=== PATIENT | female | born 1935 | race Caucasian/White ===

== ENCOUNTER → 2018-02-04 | Outpatient (CLI) | payer MEDICARE, OTHER ==
[~2018-02-04] MED LIST: REGADENOSON 0.4 MG/5 ML SYR IV ONE
== END ==
LOC: NM 10:14
PROVIDERS: ATTEND Internal Medicine Cardiovascular Disease
DX: I25.10 Atherosclerotic heart disease of native coronary artery without angina pectoris (principal); R94.31 Abnormal electrocardiogram [ECG] [EKG]
CPT/HCPCS: 78452; 93017; A9502

== ENCOUNTER → 2020-04-11 | Day surgery (SDC) | payer MEDICARE, OTHER ==
[2020-04-05 15:12] LABS: BASOPHILS % 0.5 % (0.0-1.0); EOSINOPHILS # (AUTO) 0.2 (0.0-0.4); EOSINOPHILS % 2.6 % (0.0-6.0); HEMATOCRIT 40.8 % (34.2-44.1); HEMOGLOBIN 13.1 g/dL (12.0-16.0); LYMPHOCYTES % 16.4 % (18.0-39.1); MEAN CORPUSCULAR HEMOGLOBIN 29.2 pg (28-32); MEAN CORPUSCULAR HGB CONC 32.1 g/dL (31-35); MEAN CORPUSCULAR VOLUME 91.1 fL (81-99); MONOCYTES # (AUTO) 0.7 (0.2-0.8); MONOCYTES % 12.1 % (4.4-11.3); NEUTROPHILS # (AUTO) 4.1 (2.1-6.9); NEUTROPHILS % 67.9 % (38.7-80.0); PLATELET COUNT 178 x10e3/uL (140-360); RED BLOOD COUNT 4.48 x10e6/uL (3.6-5.1); RED CELL DISTRIBUTION WIDTH 16.5 % (11.7-14.4)
[2020-04-05 15:27] LABS: ANION GAP 14.2 mmol/L (8-16); BLOOD UREA NITROGEN 17 mg/dL (7-26); BUN/CREATININE RATIO 24 (6-25); CARBON DIOXIDE 32 mmol/L (22-29); CHLORIDE 98 mmol/L (98-107); EST GLOMERULAR FILTRATION RATE > 60 ML/MIN (60-); GLUCOSE 118 mg/dL (74-118); POTASSIUM 3.2 mmol/L (3.5-5.1); SODIUM 141 mmol/L (136-145)
[~2020-04-11] MED LIST changes: +ACYCLOVIR200 MG PO; +ALLOPURINOL100 MG PO; +ATORVASTATIN CA40 MG PO; +BALANCED SALT SOLN (OPTH) 15 ML BTL IO ONE; +BETIMOL5 M1 OP; +BUPIVACAINE HC 0.75% PF 10ML VIAL INJ ONE; +CARVEDILOL12.5 MG PO; +CHLORTHALIDONE25 MG PO; +CLONAZEPAM1 MG PO; +CYCLOPENTOLATE HCL 2% OPTH SOLN 2 ML BTL OP ONE; +DIAZEPAM5 MG PO; +EPINEPHRINE HCL 1:1000 1ML 1 MG/ML AMP ONE; +FLONASE PO; +GABAPENTIN300 MG PO; +GATIFLOXACIN(OPTH) 5 ML LIQD ONE; +LATANOPROST 0.7.5 ML OP; +LIDOCAINE 2% /EPINEPHRINE 20 ML SDV INJ ONE; +LIDOCAINE HCL 2% LOCAL INJ 5 ML SDV VIAL INJ ONE; +LIDOCAINE HCL-PF 4% 40 MG/1 ML 5ML AMP ONE; +MIRALAX17 GM PO; +NEXIUM40 MG PO; +PHENYLEPHRINE HCL 2 ML DROPS ONE; +PILOCARPINE HCL(OPTH) 15 ML LIQD ONE; +POTASSIUM PO; +POVIDONE IODINE 5% (OPTH) 30 ML BTL ONE; +PROPOFOL IV EMULSION 10 MG/ML 20 ML VIAL ONE; +RAMIPRIL5 MG PO; -REGADENOSON 0.4 MG/5 ML SYR IV ONE; +SERTRALINE HCL50 MG PO; +SOTALOL80 MG PO; +TOBRAMYCIN/DEXAMETHASONE(OPTH) 3.5 GM TUBE ONE; +VENTOLIN HFA18 GM NEB; +VESICARE5 MG PO; +VITAMIN D3250 MCG PO; +WARFARIN SODIUM5 MG PO
[2020-04-11 07:08] LABS: INR 0.99; PARTIAL THROMBOPLASTIN TIME 28.7 seconds (23.8-35.5); PROTHROMBIN TIME 13.6 seconds (11.9-14.5)
--- NOTE | 2020-04-11 07:15 | NUR ---
SPIRITUAL CARE - Pre-Surgery Assessment: Pt in bed. Pt's caregiver at bedside. Pt reported supportive attention from family and friends. Intervention: [employer] provided pastoral presence, hospitality, sympathetic listening, and prayer. 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 Outcome: Pt expressed appreciation for visit. No need for follow up indicated at this time. [facility] Spirit[facility] Department O: [phone]
[2020-04-11 08:45] VITALS: BP 142/73
== END | disposition home or self-care (01) ==
LOC: OR 05:15
PROVIDERS: ATTEND Ophthalmology
DX: H25.12 Age-related nuclear cataract, left eye (principal); I10 Essential (primary) hypertension; J44.9 Chronic obstructive pulmonary disease, unspecified; K50.90 Crohn's disease, unspecified, without complications; D64.9 Anemia, unspecified; I44.0 Atrioventricular block, first degree; H91.90 Unspecified hearing loss, unspecified ear; F41.9 Anxiety disorder, unspecified; Z01.810 Encounter for preprocedural cardiovascular examination; Z01.812 Encounter for preprocedural laboratory examination; Z11.59 Encounter for screening for other viral diseases; Z79.01 Long term (current) use of anticoagulants; Z79.82 Long term (current) use of aspirin; Z85.3 Personal history of malignant neoplasm of breast; Z95.2 Presence of prosthetic heart valve
CPT/HCPCS: 36415 ×2; 66984; 80048; 85025; 85610; 85730; 93005; J0171; J2001 ×2; J2704; U0002; V2632

== ENCOUNTER → 2020-05-23 | Day surgery (SDC) | payer MEDICARE, OTHER ==
[~2020-05-23] MED LIST changes: -LIDOCAINE HCL 2% LOCAL INJ 5 ML SDV VIAL INJ ONE
[2020-05-23 07:58] LABS: ANION GAP 14.8 mmol/L (8-16); BLOOD UREA NITROGEN 16 mg/dL (7-26); BUN/CREATININE RATIO 24 (6-25); CALCIUM 8.8 mg/dL (8.4-10.2); CARBON DIOXIDE 29 mmol/L (22-29); CHLORIDE 99 mmol/L (98-107); CREATININE, SERUM 0.67 mg/dL (0.57-1.11); EST GLOMERULAR FILTRATION RATE > 60 ML/MIN (60-); GLUCOSE 100 mg/dL (74-118); POTASSIUM 3.8 mmol/L (3.5-5.1); SODIUM 139 mmol/L (136-145)
[2020-05-23 09:40] VITALS: BP 178/90
== END | disposition home or self-care (01) ==
LOC: OR 05:32
PROVIDERS: ATTEND Ophthalmology
DX: H25.11 Age-related nuclear cataract, right eye (principal); K21.9 Gastro-esophageal reflux disease without esophagitis; J44.9 Chronic obstructive pulmonary disease, unspecified; I11.0 Hypertensive heart disease with heart failure; I50.9 Heart failure, unspecified; I89.0 Lymphedema, not elsewhere classified; I44.0 Atrioventricular block, first degree; Z01.812 Encounter for preprocedural laboratory examination; Z11.59 Encounter for screening for other viral diseases; Z79.01 Long term (current) use of anticoagulants
CPT/HCPCS: 36415; 66982; 80048; J0171; J2001; U0002